=== PATIENT | male | born 1995 | race Caucasian/White ===

== ENCOUNTER 2018-08-10 11:32 | Emergency (ER) | payer OTHER ==
[~2018-08-10] VITALS: Wt 79.0 kg
--- NOTE | 2018-08-10 11:41 | ERD ---
ER Documentation Chief Complaint Chief Complaint Medical clearance HPI The patient is a 23-year-old male, presenting to the ER for medical clearance. He is under the [employer] custody because of resisting arrest. He is talkative and agitated, declined to provide any history Past medical/surgical history/social historyreview of system: Limited b/c he was uncooperative Physical Exam Vitals Vital Signs Date Temp Pulse Resp B/P (MAP) Pulse Ox O2 O2 Flow FiO2 Time Delivery Rate 08/10/18 98.0 98 18 155/100 98 11:56 (118) Physical Exam Const: No acute distress. Head: Atraumatic. Eyes: Normal Conjunctiva. ENT: Normal External Ears, Nose and Mouth. Neck: Full range of motion. No meningismus. Resp: Clear to auscultation bilaterally. Cardio: Regular rate and rhythm. Abd: Soft, non distended, normal bowel sounds, non tender. Skin: No petechiae or rashes. Back: No midline or flank tenderness. Ext: No cyanosis, or edema. Neur: Awake and alert. No focal deficit Psych: Agitated Results 24 hrs Laboratory Tests Test 08/10/18 12:13 Urine Opiates Screen Negative Urine Barbiturates Negative Urine Amphetamines Screen Negative Urine Benzodiazepines Screen Negative Urine Cocaine Screen Negative Urine Cannabinoids Positive Procedures/MDM MEDICAL MAKING DECISION: The patient is 22-year-old male, presenting with acute agitation, marijuana abuse. He is cleared for incarceration The differential diagnoses considered include but are not limited to anxiety attack, panic attack, psychiatric illness, substance abuse Departure Diagnosis: Primary Impression: Medical clearance for incarceration Additional Impression: Marijuana abuse Condition: Good Comments The patient's blood pressure was elevated (>120/80) but appears stable without evidence of hypertension emergency or urgency. The patient was counseled about the risks of hypertension and urged to pursue outpatient monitoring and therapy within a week with their primary care physician. I discussed the findings with the patient. I advised the patient to follow-up with the correction doctor tomorrow and return if any concern. Disclaimer: Inadvertent spelling and grammatical errors are likely due to EHR/dictation software use and do not reflect on the overall quality of patient care. Also, please note that the electronic time recorded on this note does not necessarily reflect the actual time of the patient encounter. CHRIS ADORNO MD Aug 10, 2018 11:41
[2018-08-10] MEDS ORDERED: LORAZEPAM 2 MG INJ IM ONE (14:30)
[2018-08-10 20:28] VITALS: BP 138/78; PULSE 88; RESP 22
== END 2018-08-10 20:31 | disposition home or self-care (01) ==
LOC: E/R 11:32
DX: F12.10 Cannabis abuse, uncomplicated (principal); Z02.89 Encounter for other administrative examinations
CPT/HCPCS: 80053; 80307; 81001; 85025; J2060; 96372